=== PATIENT | male | born 1975 | race Caucasian/White ===

== ENCOUNTER 2020-07-05 10:21 | Outpatient (CLI) | payer BC, SELFPAY ==
--- NOTE | 2020-07-05 11:30 | NEURO_ITS ---
Impression: # Complains of numbness of hands. # Bilateral ulnar neuropathy across the elbows. # Mild bilateral Carpal Tunnel Syndrome. # Needle/EMG exam not requested. Nerve Conduction Studies Anti Sensory Summary Table Stim Site NR Peak (ms) P-T Amp (?V) Site1 Site2 Delta-P (ms) Dist (cm) Og (m/s) Left Median Anti Sensory (2-3nd Digit) Wrist 3.4 65.7 Wrist 2-3nd Digit 3.4 14.0 41 Wrist 3.4 63.6 Wrist 2-3nd Digit 3.4 14.0 41 Right Median Anti Sensory (2-3nd Digit) Wrist 4.0 47.5 Wrist 2-3nd Digit 4.0 14.0 35 Wrist 3.8 56.6 Wrist 2-3nd Digit 4.0 14.0 35 Left Radial Anti Sensory (Base 1st Digit) Wrist 2.0 38.4 Wrist Base 1st Digit 2.0 0.0 Right Radial Anti Sensory (Base 1st Digit) Wrist 2.4 13.8 Wrist Base 1st Digit 2.4 0.0 Left Ulnar Anti Sensory (5th Digit) Wrist 2.9 55.4 Wrist 5th Digit 2.9 14.0 48 Right Ulnar Anti Sensory (5th Digit) Wrist 2.9 74.2 Wrist 5th Digit 2.9 14.0 48 Motor Summary Table Stim Site NR Onset (ms) O-P Amp (mV) Site1 Site2 Delta-0 (ms) Dist (cm) Og (m/s) Left Median Motor (Abd Poll Brev) Wrist 3.8 4.1 Elbow Wrist 5.1 28.0 55 Elbow 8.9 3.1 Right Median Motor (Abd Poll Brev) Wrist 3.9 11.3 Elbow Wrist 5.4 28.0 52 Elbow 9.3 4.5 Left Ulnar Motor (Abd Dig Minimi) Wrist 2.9 7.8 A Elbow Wrist 6.1 28.0 46 A Elbow 9.0 5.6 B Elbow Wrist 4.1 24.0 59 B Elbow 7.0 5.3 Right Ulnar Motor (Abd Dig Minimi) Wrist 2.6 5.7 A Elbow Wrist 6.1 29.0 48 A Elbow 8.7 3.2 B Elbow Wrist 3.5 20.0 57 B Elbow 6.1 3.9 F Wave Studies NR F-Lat (ms) L-R F-Lat (ms) Left Median (Mrkrs) (Abd Poll Brev) 29.28 0.29 Right Median (Mrkrs) (Abd Poll Brev) 29.57 0.29 Left Ulnar (Mrkrs) (Abd Dig Min) 29.66 1.03 Right Ulnar (Mrkrs) (Abd Dig Min) 30.69 1.03 MTDD
== END 2020-07-05 10:22 | disposition home or self-care (01) ==
LOC: ANHNEURO 10:25
PROVIDERS: PCP Internal Medicine; Visit Provider Internal Medicine
DX: R20.2 Paresthesia of skin (principal); G56.23 Lesion of ulnar nerve, bilateral upper limbs; G56.03 Carpal tunnel syndrome, bilateral upper limbs
CPT/HCPCS: 95911

== ENCOUNTER 2021-10-11 08:41 | Outpatient (CLI) | payer BC, SELFPAY ==
--- NOTE | 2021-10-11 08:59 | ECHO_ITS ---
Patient Info Name: Joe Denis Age: 45 years : 1975 Gender: Male Ht: 68 in Wt: 179 lbs BSA: 1.99 m2 HR: 68 bpm BP: 118 / 76 mmHg Technical Quality: Good Exam Date: 10/11/2021 9:26 AM Exam Location: [facility] Patient Status: Outpatient Admit Date: 10/11/2021 Staff Ordering Physician: Quincy Capps DO Quality Auditor: Ale Trevizo RDCS Attending Provider: Quincy Capps DO Referring Physician: Jefry FLOYD; Exam Type: CA echo doppler color flow Study Info Indications R06.00 - Dyspnea, unspecified Complete two-dimensional, color flow and Doppler transthoracic echocardiogram is performed. Summary 1. Complete two-dimensional, color flow and Doppler transthoracic echocardiogram is performed. 2. Left ventricular chamber dimension is mildly enlarged. 3. Left ventricular systolic function is mildly reduced, estimated at 45-50%. 4. The left ventricular diastolic function is grade I diastolic dysfunction. 5. E/e' 7 is not elevated. 6. Global longitudinal strain is abnormal at -14.8%. 7. There is mild tricuspid valve regurgitation. 8. No pulmonary hypertension, estimated pulmonary arterial systolic pressure is 22 mmHg. 9. There is mild pulmonic regurgitation. Left Ventricle E/e' 7 is not elevated. Global longitudinal strain is abnormal at -14.8%. Left ventricular chamber dimension is mildly enlarged. Left ventricular systolic function is mildly reduced, estimated at 45-50%. The left ventricular diastolic function is grade I diastolic dysfunction. Right Ventricle Right ventricular chamber dimension is normal. Right ventricular systolic function is normal. Left Atria Left atrial chamber dimension is normal. Right Atria Right atrial chamber dimension is normal. Aortic Valve The aortic valve is trileaflet. There is no aortic valve stenosis. There is no aortic valve regurgitation. Pulmonic Valve There is mild pulmonic regurgitation. Mitral Valve There is no mitral valve stenosis. There is no mitral valve regurgitation. Tricuspid Valve There is mild tricuspid valve regurgitation. No pulmonary hypertension, estimated pulmonary arterial systolic pressure is 22 mmHg. Pericardium/Pleural There is no pericardial effusion. Inferior Vena Cava Normal inferior vena cava with >50% collapse upon inspiration consistent with normal right atrial pressure, 5 mmHg. Aorta The aortic root size at the sinus of Valsalva is normal. Left Ventricular Outflow Tract Name Value Normal LVOT 2D LVOT Diameter 2.1 cm LVOT Doppler LVOT Peak Gradient 3 mmHg LVOT Mean Gradient 1 mmHg LVOT VTI 15 cm LVOT VTI/AV VTI Ratio 0.9 LVOT Stroke Volume 55 ml LVOT CO 12.1 l/min LVOT CI 6.1 l/min/m2 Pulmonic Valve Name Value Normal
--- NOTE | 2021-10-11 08:59 | EST_ITS ---
Patient Info Name: Joe Denis Age: 45 years : 1975 Gender: Male Ht: 68 in Wt: 1,789 lbs BSA: 6.86 m2 HR: 87 bpm BP: 128 / 92 mmHg Heart Rhythm: Sinus Rhythm Technical Quality: Good Exam Date: 10/11/2021 10:51 AM Exam Location: [facility] Patient Status: Outpatient Admit Date: 10/11/2021 Staff Ordering Physician: Quincy Capps DO Appliance Installer: Nanci Keyes RDCS Attending Provider: Quincy Capps DO Referring Physician: Jefry FLOYD; Exam Type: CA stress echo Study Info Indications - MARTINEZ, NORIS Dobutamine stress echocardiogram is performed. Summary 1. 1. Negative Dhaval exercise stress test for ischemic ST changes by ECG criteria. 2. 2. Good functional capacity, achieving 11 METs of workload. 3. 3. Hypertensive response to exercise. 4. 4. Appropriate HR response to exercise. 5. 5. Appropriate HR recovery at 1 minute post exercise. 6. 6. Negative stress echocardiogram for ischemia by wall motion analysis. 7. 7. Patient informed of the above results. Stress Echo Findings Left Ventricle Appropriate increase in LV endocardial thickening with systole. Appropriate augmentation of contractility with systole. No wall motion abnormality. Left Ventricle Normal LV systolic function, no wall motion abnormality. Protocol: Dhaval Stress ECG Details Stage: REST Duration (min): 0 min : 48 sec Speed (mph): 0.0 Grade (%): 0 HR (bpm): 83 SBP (mmHg): 128 DBP (mmHg): 92 METS: --- Stage: REST Duration (min): 1 min : 20 sec Speed (mph): 0.0 Grade (%): 0 HR (bpm): 77 SBP (mmHg): 128 DBP (mmHg): 92 METS: --- Stage: REST Duration (min): 15 min : 50 sec Speed (mph): 0.0 Grade (%): 0 HR (bpm): 85 SBP (mmHg): 128 DBP (mmHg): 92 METS: --- Stage: STAGE 1 Duration (min): 1 min : 0 sec Speed (mph): 1.7 Grade (%): 10 HR (bpm): 104 SBP (mmHg): 128 DBP (mmHg): 92 METS: --- Stage: STAGE 1 Duration (min): 2 min : 0 sec Speed (mph): 1.7 Grade (%): 10 HR (bpm): 114 SBP (mmHg): 128 DBP (mmHg): 92 METS: --- Stage: STAGE 1 Duration (min): 3 min : 0 sec Speed (mph): 1.7 Grade (%): 10 HR (bpm): 116 SBP (mmHg): 161 DBP (mmHg): 77 METS: --- Stage: STAGE 2 Duration (min): 1 min : 0 sec Speed (mph): 2.5 Grade (%): 12 HR (bpm): 126 SBP (mmHg): 161 DBP (mmHg): 77 METS: --- Stage: STAGE 2 Duration (min): 2 min : 0 sec Speed (mph): 2.5 Grade (%): 12 HR (bpm): 136 SBP (mmHg): 157 DBP (mmHg): 82 METS: --- Stage: STAGE 2 Duration (min): 3 min : 0 sec Speed (mph): 2.5 Grade (%): 12 HR (bpm): 142 SBP (mmHg): 157 DBP (mmHg): 82 METS: --- Stage: STAGE 3 Duration (min): 1 min : 0 sec Speed (mph): 3.4 Grade (%): 14 HR (bpm): 153 SBP (mmHg): 186 DBP (mmHg): 76 METS: --- Stage: STAGE 3 Duration (min): 2 min : 0 sec Speed (mp
== END 2021-10-11 08:42 | disposition home or self-care (01) ==
PROVIDERS: PCP Internal Medicine; Visit Provider Internal Medicine Cardiovascular Disease
DX: R06.00 Dyspnea, unspecified (principal); R07.9 Chest pain, unspecified
CPT/HCPCS: 93306; 93351

== ENCOUNTER 2022-12-12 15:45 | Outpatient (RCR) | payer BC, SELFPAY ==
--- NOTE | 2022-11-14 10:25 | PTOPEVAL1 ---
Assessment and note entered by Deloris Rowell, PT Evaluation Information Assessment Status Evaluation Diagnosis right hip pain Onset end of August 2022 Subjective Information Pt had significant issues with Covid and vaccines. Current issue with right hip was having depe joint pain. Also has plantar fasciitis and had recently changed shoe inserts and thought this was throwing off hip. 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 Has been rolling and stretching hips. After getting used to inserts, has not had immediate improvement Has had some improvement in last two weeks. But last night did wake up at night. Reported Pain Level Pain Score 1: Self Report Assessment PT Clinical Summary Pt presents with right hip pain that has persisted about 2.5 months. While it has improved, pt persists and continues to wake him at night. Pt demo' multiple areas of decreased LE flexibility, adhesions, abnormal pelvic alignment, and decresaed strength in mulitple core muscles all of which effect his ability to perform his normal ADLs and recreational activities. Thus patient will benefit from physical therapy to address these deficits and return pt to pain-free PLOF. Plan of Care Interventions Electrical Stimulation,Hot Pack/Cold Pack,Manual Therapy,Neuro Re-education,Patient/Caregiver Educati,Therapeutic Activities,Therapeutic Exercise,Ultrasound PT Services Indicated Yes Treatment Frequency and 1-2x weekly x 4 weeks Duration These treatments will address the objective and functional deficits as defined above. The patient will be advanced safely and appropriately in order for the patient to progress towards his/her prior level of function. Additional exercises will be introduced and as well as a comprehensive home exercise program upon discharge, if needed, ?to ensure carryover of functional gains achieved in the clinic. This treatment plan has been reviewed and agreement upon by the patient.
--- NOTE | 2022-11-14 10:26 | OPREHPOC ---
Outpatient Therapy Plan of Care This is a Multidisciplinary Plan of Care that may contain components documented by all disciplines (PT, OT, and ST.) PT Goal 1 Goal Pt will be independent in HEP Target Visit 8 PT Goal 2 Goal Pt will verbalize understanding of diagnosis and prognosis Target Visit 8 PT Problem 2 PT Problem #2 Pain PT Goal 1 Goal Pt will report greatest pain level at 2/10 or less Target Visit 4 PT Goal 2 Goal Pt will report resolution of pain Target Visit 8 PT Problem 3 PT Problem #3 Impaired Strength PT Goal 1 Goal Pt will demo strength of 4+/5 in all tested planes PT Problem 4 PT Problem #4 Impaired Flexibility PT Goal 1 Goal pt will demo improved quads and hams flexibility Target Visit 8
--- NOTE | 2022-12-13 16:24 | PTOPDC ---
Assessment and note entered by Deloris Rowell, PT Assessment Status Discharge Diagnosis right hip pain Onset end of August 2022 Subjective Information Pt reports his hips have been great . However has had plantar fasciitis issues with recent walking Also played tennis recently and pulled his back, resulting in severly increased pain. Has been seeing chiropractor consistently for multiple days to address this. Reported Pain Level Pain Score 0: Self Report Assessment PT Clinical Summary Pt has attended therapy consistently for hip pain R hip. Pt reports his hip is much better, even states within the last week has had 0/10 hip pain. Demo's improved soft tissue extensibility, improved flexibility overall, is independent in HEP. However pt has recently had a back injury thus strength was unable to be tested due to back pain. As patient has met his goals for his hip, he is being discharged from this plan of care.
== END 2022-12-16 10:27 | disposition home or self-care (01) ==
LOC: ANHHIPT 15:45
PROVIDERS: PCP Physician Assistant Medical; Visit Provider Nurse Practitioner Family
DX: M25.551 Pain in right hip (principal)
CPT/HCPCS: 97110; 97140; 97161; 97750

== ENCOUNTER 2023-01-23 00:57 | Day surgery (SDC) | payer BC, SELFPAY ==
[2023-01-14 13:01] VITALS: BMI 27.3
[2023-01-23 13:35] VITALS: BP 121/91; PULSE 101; RESP 20; TEMP 36.4; O2SAT 100; BMI 26.9
[2023-01-23] MEDS: LACTATED RINGERS 1,000 ML 150 ML IV CONT (13:58)
--- NOTE | 2023-01-23 14:03 | P.PNAN_ITS ---
Anes - Initial Pre Proc Eval Procedure: Operation Date: 01/23/23 14:15 Proposed Procedures p Screening Colonoscopy - Keegan Redding MD Date/Time: 01/23/23 14:03 Surgeon: Keegan Redding MD Pre Op Diagnosis: neoplasm screening Patient Data Age: 47 Gender: M Height: 1.73 m Weight: 80.2 kg Last Vital Signs Temp 97.5 F L 01/23/23 13:35 Pulse 101 H 01/23/23 13:35 Resp 20 01/23/23 13:35 BP 121/91 H 01/23/23 13:35 Pulse Ox 100 01/23/23 13:35 O2 Del Method Room Air 01/23/23 13:35 Allergies Allergy/AdvReac Type Severity Reaction Status Date / Time No Known Allergies Allergy Verified 01/22/23 09:07 Home Medications Medication Instructions Recorded Confirmed Type fluticasone propionate 50 1 spray intranasal DAILY #16 grams 01/13/22 01/22/23 Rx mcg/actuation nasal spray,suspension multivitamin 1 tablet PO DAILY 11/26/22 01/22/23 History testosterone cypionate 200 mg/mL 150 mg (0.75 mL) IM .COMPLEX #3 mL 12/12/22 01/22/23 Rx intramuscular oil (Depo-Testosterone) Patient hx anesthesia problems: none Family hx anesthesia problems: none Results Review: All pre-operative results and documents have been reviewed as part of the pre- operative evaluation. [facility] Past Medical History Medical History Hypogonadism in male Surgical History Surgical History History of nasal surgery History of tonsillectomy Social History Social History Smoking status: Never smoker Alcohol intake: current Drinks per week: 7 Substance use: never Substance use type: does not use Living arrangements: with family Occupation/Education: occupation Gender identity (if verbalized by the patient): Male Spiritual care concerns: No Anes - Eval Final PreProcedure Day of Procedure 01/23/23 14:03 Patient weight: overweight Heart: regular rate and rhythm Lungs: clear to auscultation Airway: Mallampati scale class II Neurological: alert and oriented Last oral intake: >/= 8 hours ASA classification: II Emergent: no Anesthetic plan: proceed Anesthesia type and monitoring: general GIVS and standard monitoring Results Review: All pre-operative results and documents have been reviewed as part of the pre- operative evaluation. Informed Consent: The patient's anesthetic plan and its attendant risks and benefits were discussed with the patient/family/POA. Questions were solicited and answers provided to the satisfaction of the patient/family/POA.
--- NOTE | 2023-01-23 14:05 | PM.HPGS ---
History of Present Illness History of Present Illness Consent: Risks, benefits, and alternatives have been discussed and questions answered. Patient agrees to proceed with procedure. Chief complaint: neoplasm screening Narrative: Joe Denis is a 47 year old male Presents for screening colonoscopy. Patient's current weight appetite and bowel movements are normal. Patient denies abdominal pain. He has had no bleeding. Family history is noncontributory. Review of Systems Review of Systems: Review of systems noncontributory. [facility] Past Medical History Medical History Hypogonadism in male Surgical History Surgical History History of nasal surgery History of tonsillectomy Social History Social History Smoking status: Never smoker Alcohol intake: current Drinks per week: 7 Substance use: never Substance use type: does not use Living arrangements: with family Occupation/Education: occupation Gender identity (if verbalized by the patient): Male Spiritual care concerns: No Meds Home Medications and Allergies Home Medications Medication Instructions Recorded Confirmed Type fluticasone propionate 50 1 spray intranasal DAILY #16 grams 01/13/22 01/22/23 Rx mcg/actuation nasal spray,suspension multivitamin 1 tablet PO DAILY 11/26/22 01/22/23 History testosterone cypionate 200 mg/mL 150 mg (0.75 mL) IM .COMPLEX #3 mL 12/12/22 01/22/23 Rx intramuscular oil (Depo-Testosterone) Allergies Allergy/AdvReac Type Severity Reaction Status Date / Time No Known Allergies Allergy Verified 01/22/23 09:07 Vital Signs Vital Signs - 24 hr 01/23/23 13:35 Temperature 97.5 F L Pulse Rate 101 H Respiratory Rate 20 Blood Pressure 121/91 H Pulse Oximetry 100 Oxygen Delivery Room Air Exam Narrative: Physical exam reveals patient to be alert. Vital signs stable. HEENT exam is unremarkable. Patient is anicteric. Lungs are clear to auscultation and percussion. Heart is without murmur or extra sounds. Abdomen bowel sounds are present soft nontender with no organomegaly. Digital external rectal exam normal. Assessment and Plan Assessment and plan (1) Encounter for screening colonoscopy: Code(s): Z12.11 - Encounter for screening for malignant neoplasm of colon Status: Acute Assessment and Plan: Patient presents for screening colonoscopy. Plan for surveillance colonoscopy at this time. Further recommendations may be given after endoscopy.
[2023-01-23] MEDS: SIMETHICONE ORAL SUSPENSION 20 MG/0.3 ML 30 ML BOTTLE 0.6 ML IRRIGATION (14:22)
[2023-01-23 14:31] VITALS: BP 117/79; PULSE 94; RESP 20; O2SAT 97
[2023-01-23 14:41] VITALS: BP 111/68; PULSE 93; RESP 19; O2SAT 98
[2023-01-23 14:51] VITALS: BP 117/84; PULSE 91; RESP 20; O2SAT 98
== END 2023-01-23 15:02 | disposition home or self-care (01) ==
PROVIDERS: PCP Physician Assistant Medical; Visit Provider Internal Medicine Gastroenterology
PROC: 0DJD8ZZ Inspection of Lower Intestinal Tract, Via Natural or Artificial Opening Endoscopic (ICD-10-PCS; CPT 45378; principal; 2023-01-23 14:15)
DX: Z12.11 Encounter for screening for malignant neoplasm of colon (principal); K64.8 Other hemorrhoids; E29.1 Testicular hypofunction; Z79.890 Hormone replacement therapy
CPT/HCPCS: 45378; J2704; J7120

== ENCOUNTER 2023-05-04 14:21 | Outpatient (CLI) | payer BC, SELFPAY ==
[2023-05-04 14:40] LABS: Basophils Percent Auto 0.5 % (0.2-1.2); Eosinophils Absolute Auto 0.1 K/mm3 (0-0.3); Eosinophils Percent Auto 2.1 % (0-4.4); Hemoglobin 16.7 g/dL (14.0-18.0); Immature Granulocyte Absolute 0.03 K/mm3 (0.00-0.031); Immature Granulocyte Percent A 0.5 % (0-0.5); Lymphocytes Absolute Auto 1.58 K/mm3 (0.9-3.2); Lymphocytes Percent Auto 25.1 % (18.3-44.2); Mean Corpuscular HGB Conc 34.8 g/dl (32-36); Mean Corpuscular Hemoglobin 32.3 pg (26-34); Mean Corpuscular Volume 92.8 fl (80-100); Mean Platelet Volume 10.1 fl (7.4-10.4); Monocytes Absolute Auto 0.7 K/mm3 (0.1-0.6); Neutrophils Absolute Auto 3.8 K/mm3 (1.3-6.7); Neutrophils Percent Auto 60.8 % (45.5-73.1); Platelet Count Result 146 k/mm3 (150-375); Red Blood Count 5.17 M/mm3 (4.6-6.20); Red Cell Distribution Width 11.9 % (11.5-14.5); White Blood Count 6.3 K/mm3 (4.5-10.0)
[2023-05-04 16:48] LABS: Iron 104 ug/dL (49-181)
[2023-05-04 16:52] LABS: Alanine Aminotransferase 33 U/L (6-50); Albumin Level 4.2 g/dL (3.5-5.1); Alkaline Phosphatase 46 U/L (38-126); Anion Gap 9 mmol/L (8-16); Aspartate Amino Transferase 29 U/L (17-59); Bilirubin,Total 0.8 mg/dL (0.2-1.3); Blood Urea Nitrogen 20 mg/dL (9-20); Calcium 9.4 mg/dL (8.4-10.2); Carbon Dioxide 29 mmol/L (22-30); Chloride 100 mmol/L (98-107); Estimated Glomerular Filt Rate > 60; Glucose 100 mg/dL (65-110); Sodium 138 mmol/L (137-145)
[2023-05-04 17:00] LABS: Percent Iron Saturation 29 % (20-50)
[2023-05-04 17:57] LABS: Folic Acid 15.1 ng/mL (2.76->20)
[2023-05-07 07:51] LABS: Methylmalonic Acid 138 nmol/L (87-318)
[2023-05-09 12:36] LABS: Platelet Antibody, Direct NEGATIVE (NEGATIVE)
[2023-05-09 15:47] LABS: Soluble Transferrin Receptor 1.23 mg/L (0.76-1.76)
== END 2023-05-04 14:22 | disposition home or self-care (01) ==
LOC: ANHLAB 14:23
PROVIDERS: PCP Physician Assistant Medical; Visit Provider Internal Medicine Hematology & Oncology
DX: D64.9 Anemia, unspecified (principal); D69.59 Other secondary thrombocytopenia
CPT/HCPCS: 36415; 80053; 82607; 82728; 82746; 83540; 83550; 83921; 84238; 85025; 86023

== ENCOUNTER 2023-05-14 07:54 | Outpatient (CLI) | payer BC, SELFPAY ==
--- NOTE | ~2023-05-14 | US_ITS ---
Abdominal Sonogram: Real-time sonographic imaging of the abdomen was performed. Clinical History: Secondary anna therapy Findings: The liver appears normal with no evidence of mass lesion or bile duct dilatation. Main por artemio vein demonstrates normal direction of flow. The spleen is normal in size without evidence of foca l lesion. The gallbladder is well distended, and contains a probable single tiny gallstone. The comm on bile duct measures 2 mm. The visualized pancreas, aorta, and IVC are unremarkable. The right kid ronni measures 10.4 cm in length and the left kidney measures 10.7 cm. There is no hydronephrosis or r enal calculus. Impression: Probable tiny gallstone or sludge. Reviewed, dictated and finalized at location [facility]. [facility] Impression: Probable tiny gallstone or sludge.
== END 2023-05-14 07:55 | disposition home or self-care (01) ==
PROVIDERS: PCP Physician Assistant Medical; Visit Provider Internal Medicine Hematology & Oncology
DX: D69.59 Other secondary thrombocytopenia (principal)
CPT/HCPCS: 76700

== ENCOUNTER 2023-09-15 08:39 | Outpatient (CLI) | payer BC, SELFPAY ==
--- NOTE | 2023-09-15 08:46 | ECHO_ITS ---
Patient Info Name: Joe Denis Age: 47 years : 1975 Gender: Male Ht: 68 in Wt: 177 lbs BSA: 1.98 m2 HR: 70 bpm BP: 135 / 94 mmHg Technical Quality: Fair Exam Date: 09/15/2023 8:52 AM Exam Location: [facility] Patient Status: Outpatient Admit Date: 09/15/2023 Staff Ordering Physician: Quincy Capps DO Fiberglass Model Maker: Sonja Villegas RDCS Attending Provider: Quincy Capps DO Referring Physician: Jefry FLOYD; Exam Type: CA echo doppler color flow Study Info Indications I51.9 - Heart disease, unspecified Complete two-dimensional, color flow and Doppler transthoracic echocardiogram is performed. Summary 1. Complete two-dimensional, color flow and Doppler transthoracic echocardiogram is performed. 2. Left ventricular chamber dimension is normal. 3. Left ventricular systolic function is preserved, estimated at 50-55%. 4. The left ventricular diastolic function is grade I diastolic dysfunction. 5. E/e' 5 is not elevated. 6. There is trace mitral valve regurgitation. 7. There is mild tricuspid valve regurgitation. 8. There is mild pulmonic regurgitation. Left Ventricle E/e' 5 is not elevated. Left ventricular chamber dimension is normal. Left ventricular systolic function is preserved, estimated at 50-55%. The left ventricular diastolic function is grade I diastolic dysfunction. Right Ventricle Right ventricular chamber dimension is normal. Right ventricular systolic function is normal. Left Atria Left atrial chamber dimension is normal. Right Atria Right atrial chamber dimension is normal. Aortic Valve The aortic valve is trileaflet. There is no aortic valve stenosis. There is no aortic valve regurgitation. Pulmonic Valve There is mild pulmonic regurgitation. Mitral Valve There is no mitral valve stenosis. There is trace mitral valve regurgitation. Tricuspid Valve There is mild tricuspid valve regurgitation. No pulmonary hypertension, estimated pulmonary arterial systolic pressure is 18 mmHg. Pericardium/Pleural There is no pericardial effusion. Inferior Vena Cava Normal inferior vena cava with >50% collapse upon inspiration consistent with normal right atrial pressure, 5 mmHg. Aorta The aortic root size at the sinus of Valsalva is normal. Left Ventricular Outflow Tract Name Value Normal LVOT 2D LVOT Diameter 2.1 cm LVOT Doppler LVOT Peak Gradient 3 mmHg LVOT Mean Gradient 1 mmHg LVOT VTI 14 cm LVOT VTI/AV VTI Ratio 0.8 LVOT Stroke Volume 47 ml LVOT CO 3.0 l/min LVOT CI 1.5 l/min/m2 Pulmonic Valve Name Value Normal RVOT Doppler RVOT Peak Gradient 1 mmHg PV Doppler PV Peak Gradient 2 mm
== END 2023-09-15 08:40 | disposition home or self-care (01) ==
PROVIDERS: PCP Physician Assistant Medical; Visit Provider Internal Medicine Cardiovascular Disease
DX: I08.3 Combined rheumatic disorders of mitral, aortic and tricuspid valves (principal)
CPT/HCPCS: 93306

== ENCOUNTER 2023-11-25 11:39 | Outpatient (CLI) | payer BC, SELFPAY ==
[2023-11-25 11:54] LABS: Basophils Percent Auto 0.5 % (0.2-1.2); Eosinophils Absolute Auto 0.1 K/mm3 (0-0.3); Eosinophils Percent Auto 1.9 % (0-4.4); Hematocrit 52.1 % (42.0-52.0); Hemoglobin 17.9 g/dL (14.0-18.0); Immature Granulocyte Absolute 0.04 K/mm3 (0.00-0.031); Immature Granulocyte Percent A 0.6 % (0-0.5); Immature Platelet Fraction Pct 5.1 % (0.9-11.2); Lymphocytes Absolute Auto 1.89 K/mm3 (0.9-3.2); Lymphocytes Percent Auto 29.2 % (18.3-44.2); Mean Corpuscular HGB Conc 34.4 g/dl (32-36); Mean Corpuscular Hemoglobin 32.7 pg (26-34); Mean Corpuscular Volume 95.1 fl (80-100); Mean Platelet Volume 10.4 fl (7.4-10.4); Monocytes Absolute Auto 0.7 K/mm3 (0.1-0.6); Monocytes Percent Auto 10.3 % (2.6-8.5); Neutrophils Absolute Auto 3.7 K/mm3 (1.3-6.7); Neutrophils Percent Auto 57.5 % (45.5-73.1); Platelet Count Result 134 k/mm3 (150-375); Red Blood Count 5.48 M/mm3 (4.6-6.20); Red Cell Distribution Width 12.5 % (11.5-14.5); White Blood Count 6.5 K/mm3 (4.5-10.0)
[2023-11-25 16:03] LABS: Folic Acid > 20.0 ng/mL (2.76->20)
[2023-11-28 17:39] LABS: Testosterone Total 894 ng/dL (250-1100)
== END 2023-11-25 11:40 | disposition home or self-care (01) ==
LOC: ANHLAB 11:40
PROVIDERS: PCP Physician Assistant Medical; Visit Provider Internal Medicine Hematology & Oncology
DX: D64.9 Anemia, unspecified (principal); E29.1 Testicular hypofunction
CPT/HCPCS: 36415; 82607; 82746; 84403; 85025; 85055

== ENCOUNTER 2024-06-02 09:54 | Outpatient (CLI) | payer BC, SELFPAY ==
[2024-06-02 10:12] LABS: Basophils Percent Auto 0.3 % (0.2-1.2); Eosinophils Absolute Auto 0.1 K/mm3 (0-0.3); Eosinophils Percent Auto 1.8 % (0-4.4); Hematocrit 49.7 % (42.0-52.0); Hemoglobin 17.4 g/dL (14.0-18.0); Immature Granulocyte Absolute 0.04 K/mm3 (0.00-0.031); Immature Granulocyte Percent A 0.6 % (0-0.5); Lymphocytes Absolute Auto 1.59 K/mm3 (0.9-3.2); Lymphocytes Percent Auto 24.1 % (18.3-44.2); Mean Corpuscular Hemoglobin 31.9 pg (26-34); Mean Corpuscular Volume 91.2 fl (80-100); Mean Platelet Volume 10.2 fl (7.4-10.4); Monocytes Absolute Auto 0.7 K/mm3 (0.1-0.6); Monocytes Percent Auto 10.5 % (2.6-8.5); Neutrophils Absolute Auto 4.1 K/mm3 (1.3-6.7); Neutrophils Percent Auto 62.7 % (45.5-73.1); Platelet Count Result 145 k/mm3 (150-375); Red Blood Count 5.45 M/mm3 (4.6-6.20); Red Cell Distribution Width 12.3 % (11.5-14.5); White Blood Count 6.6 K/mm3 (4.5-10.0)
[2024-06-02 10:48] LABS: Iron 92 ug/dL (49-181)
[2024-06-02 10:51] LABS: Alanine Aminotransferase 49 U/L (6-50); Albumin Level 4.4 g/dL (3.5-5.1); Alkaline Phosphatase 48 U/L (38-126); Anion Gap 6 mmol/L (4-12); Aspartate Amino Transferase 32 U/L (17-59); Bilirubin,Total 0.8 mg/dL (0.2-1.3); Blood Urea Nitrogen 22 mg/dL (9-20); Calcium 9.4 mg/dL (8.4-10.2); Carbon Dioxide 31 mmol/L (22-30); Chloride 101 mmol/L (98-107); Estimated Glomerular Filt Rate > 60; Glucose 96 mg/dL (65-110); Potassium 4.5 mmol/L (3.4-5.0); Sodium 138 mmol/L (137-145)
[2024-06-02 16:05] LABS: Percent Iron Saturation 25 % (20-50)
[2024-06-03 00:18] LABS: Folic Acid 13.7 ng/mL (2.76->20)
== END 2024-06-02 09:55 | disposition home or self-care (01) ==
LOC: ANHLAB 09:58
PROVIDERS: PCP Physician Assistant Medical; Visit Provider Internal Medicine Hematology & Oncology
DX: D64.9 Anemia, unspecified (principal)
CPT/HCPCS: 36415; 80053; 82607; 82728; 82746; 83540; 83550; 85025

== ENCOUNTER 2024-11-08 07:49 | Outpatient (CLI) | payer BC, SELFPAY ==
--- OUTSIDE RECORDS SUMMARY | 2024-11-08 07:54 | XMS_ITS | Clinical Summary ---
Author Organization [facility] Vern Kerr Address [address] [place] [address] [place] [address] Care Team Providers Care Research Program Internship Name Role Phone Unavailable Primary Care Provider Unavailabl e Allergies No known active allergies Medications testosterone cypionate 200 mg/mL Kit 01/03/2021 Active BENEFIBER, GUAR GUM, ORAL Take by mouth. Active ibuprofen (MOTRIN) 200 mg tablet Take 200 mg by mouth every 6 hours as needed for Pain, Mild. Active Active Problems No known active problems Encounters Date Type Department Care Team Description 09/06/2024 External Device Data [facility]CTION Provider, Abstract 08/24/2024 External Device Data [facility] Provider, Abstract 08/23/2024 External Device Data [facility] Provider, Abstract from Last 3 Months Family History Medical History Relation Name Comments Lung Cancer Father Relation Name Status Comments Brother Alive Daughter Alive Father Mother Alive Sister Alive Son Alive Social History Tobacco Use Types Packs/Day Years Used Date Smoking Tobacco: Never Smokeless Tobacco: Never Tobacco Cessation:Counseling Given: Not Answered Alcohol Use Standard Drinks/Week Comments Yes 0 (1 standard drink = 0.6 oz pur e alcohol) ocassional Sex and Gender Information Value Date Recorded Sex Assigned at Not on file Legal Sex Male 5:36 PM WAITER/WAITRESS BAR Gender Identity Not on file Sexual Orientation Not on file Last Filed Vital Signs Vital Sign Reading Time Taken Comments Blood Pressure 141/97 06/03/2024 9:59 AM WAITER/WAITRESS BAR Pulse 74 06/03/2024 9:56 AM WAITER/WAITRESS BAR Temperature 36.3 C (97.3 F) 06/03/2024 9:56 AM WAITER/WAITRESS BAR Respiratory Rate 16 06/03/2024 9:56 AM WAITER/WAITRESS BAR Oxygen Saturation 97% 06/03/2024 9:56 AM WAITER/WAITRESS BAR Inhaled Oxygen Concentration - - Weight 83.3 kg (183 lb 9.6 oz) 06/03/2024 9:56 A M WAITER/WAITRESS BAR Height 172.7 cm (5' 8) 05/04/2023 1:27 PM WAITER/WAITRESS BAR Body Mass Index 27.92 05/04/2023 1:27 PM WAITER/WAITRESS BAR Plan of Treatment Upcoming Encounters Date Type Department Care Team (Late st Contact Info) Description 03/07/2025 10:00 AM WAITER/WAITRESS BAR Office Visit [facility] Oncology and Hematology - [place] [address] [facility] [address] [place] [address] Sheldon De León MD [address] [facility] [address] [place] [address] Health Maintenance Due Date Last Done Comments Pre-Diabetes and Diabetes Screening 1975 DTAP/TDAP/TD VACCINES (1 - Tdap) 1996 HEPATITIS B VACCINES (1 of 3 - 19+ 3-dose series) 10/04 COLORECTAL SCREENING 2022 Colorectal Cancer Screening 2022 FIT-DNA Q 3 years 2022 FIT/FOBT Q 1 year 2022 Flex Sig/CT Colonography Q 5 years 2022 INFLUENZA VACCINE (#1) 2024 Insurance [facility] BLUE ACCESS CHOICE
--- OUTSIDE RECORDS SUMMARY | 2024-11-08 07:54 | XMS_ITS | Clinical Summary ---
Author Organization [facility] Address [address] [place] [address] Care Team Providers Care Pipe Assembly Worker Name Role Phone Kenneth Figueredo MD Primary Care Provider [phone] Allergies No known active allergies Medications fluticasone propionate 50 MCG/ACT nasal spray INSTILL 1 SPRAY IN EACH NOSTRIL DAILY 04/09/2020 Active Active Problems Problem Noted Date Diagnosed Date Trigger middle finger of right hand 08/29/2020 Cubital tunnel syndrome on right 08/29/2020 Family History Medical History Relation Comments Cancer Father Cancer Maternal Grandfather Cancer Paternal Grandfather Cancer Paternal Grandmother Relation Status Comments Father Maternal Grandfather Paternal Grandfather Paternal Grandmother Social History Tobacco Use Types Packs/Day Years Used Date Smoking Tobacco: Never Smokeless Tobacco: Never Tobacco Cessation:Counseling Given: No PHQ-2 Answer Date Recorded PHQ-2 Score - If the patient scores above 3, please move on to questions 3-9 0 08/29/2020 Sex and Gender Information Value Date Recorded Sex Assigned at Not on file Legal Sex Male 7:12 PM CDT Gender Identity Not on file Sexual Orientation Not on file Last Filed Vital Signs Vital Sign Reading Time Taken Comments Blood Pressure 108/70 09/06/2020 10:28 AM CDT Pulse 72 09/06/2020 10:28 AM CDT Temperature - - Respiratory Rate - - Oxygen Saturation 97% 08/29/2020 8:23 AM CDT Inhaled Oxygen Concentration - - Weight 83.1 kg (183 lb 4.8 oz) 09/06/2020 10:28 AM CDT Height 172.7 cm (5' 8) 09/06/2020 10:28 AM CDT Body Mass Index 27.87 09/06/2020 10:28 AM CDT Plan of Treatment Health Maintenance Due Date Last Done Comments Colorectal Cancer Screening Colonoscopy (10 Years) 1977 Annual Physical 1980 Hepatitis C 10/23/1995 DTaP, Tdap and Td Vaccines ( 1 - Tdap) 1996 Hepatitis B Vaccines (1 of 3 - 19+ 3-dose series) 1996 COVID-19 Vaccine (3 - 2023-2 5 season) 2023 07/15/2020, 06/24/2020 Meningococcal B Vaccine Aged Out No l onger eligible based on patient's age to complete this topic Meningococcal Vaccine Aged Out No jacque juli eligible based on patient's age to complete this topic Pneumococcal Vaccine: Pediatrics (0 to 5 Years) and At-Risk Patients (6 to 49 Years) Aged Out No longer eligible b ased on patient's age to complete this topic RSV Immunizations Under 20 Months Aged Out No longer eligible b ased on patient's age to complete this topic Insurance Care Teams Pipe Assembly Worker Relationship Specialty Start Date End Date Kenneth Figueredo MD [address] [place] [id number] PCP - General INTERNAL MEDICINE 08/29/20
--- NOTE | 2024-11-08 08:05 | ECHO_ITS ---
Patient Info Name: Joe Denis Age: 49 years : 1975 Gender: Male Ht: 68 in Wt: 179 lbs BSA: 1.99 m2 HR: 70 bpm BP: 137 / 93 mmHg Technical Quality: Good Exam Date: 11/08/2024 8:16 AM Patient Status: O Admit Date: 11/08/2024 Exam Type: CA echo doppler color flow Complete two-dimensional, color flow and Doppler transthoracic echocardiogram is performed. Manager Gift: Ramonita Vargas Attending Provider: Quincy Capps DO Summary 1. Complete two-dimensional, color flow and Doppler transthoracic echocardiogram is performed. 2. Left ventricular chamber dimension is mildly enlarged. 3. Left ventricular systolic function is mildly reduced, estimated at 45-50. 4. There is mild concentric increased left ventricular wall thickness. 5. The left ventricular diastolic function is grade I diastolic dysfunction. 6. E/e' 5 is not elevated. 7. Left atrial chamber dimension is mildly enlarged. 8. There is trace mitral valve regurgitation. 9. There is trace tricuspid valve regurgitation. 10. There is mild pulmonic regurgitation. Left Ventricle E/e' 5 is not elevated. Left ventricular chamber dimension is mildly enlarged. Left ventricular systolic function is mildly reduced, estimated at 45-50. There is mild concentric increased left ventricular wall thickness. The left ventricular diastolic function is grade I diastolic dysfunction. Right Ventricle Right ventricular chamber dimension is normal. Right ventricular systolic function is normal and with normal TAPSE 1.8 cm. Left Atria Left atrial chamber dimension is mildly enlarged. Right Atria Right atrial chamber dimension is normal. Aortic Valve The aortic valve is trileaflet. There is no aortic valve stenosis. There is no aortic valve regurgitation. Pulmonic Valve There is mild pulmonic regurgitation. Mitral Valve There is no mitral valve stenosis. There is trace mitral valve regurgitation. Tricuspid Valve There is trace tricuspid valve regurgitation. RVSP is not measured due to an inadequate TR jet. Pericardium/Pleural There is no pericardial effusion. Inferior Vena Cava Normal inferior vena cava with >50% collapse upon inspiration consistent with normal right atrial pressure, 5 mmHg. Aorta The aortic root size at the sinus of Valsalva is normal. Left Ventricular Outflow Tract Name Value Normal LVOT 2D LVOT Diameter 2.0 cm LVOT Doppler LVOT Peak Velocity 84 cm/s LVOT Peak Gradient 3 mmHg LVOT Mean Gradient 1 mmHg LVOT VTI 18 cm LVOT Stroke Volume 57 ml LVOT CO 4.0 l/min LVOT CI 2.0 l/min/m2 Pulmonic Valve Name Value Normal RVOT Doppler RVOT Peak Velocity 64 cm/s RVOT Peak Gradient 2 mmHg PV Doppler PV Peak Velocity 87 cm/s PV Peak Gradient 3 mmHg Mitral Valve Name Value Normal MV Diastolic Function MV E Peak Velocity 45 cm/s MV A Peak Velocity 51 cm/s MV E/A 0.9 MV Decel Time (PW) 242 ms MV Annular TDI MV E/e' (Septal) 6.3 MV E/e' (Lateral) 4.2 MV E/e' (Average) 5.3 Tricuspid Valve Name Value Normal Estimated PAP/RSVP RA Pressure 5 mmHg <=5 TV Annular TDI TV Lateral Melyssa s' Velocity 11.0 cm/s >=9.5 Aortic Valve Name Value Normal AV Doppler AV Peak Velocity 102 cm/s AV Peak Gradient 4 mmHg AV Area (Cont Eq Og) 2.7 cm2 AV DI (Og) 0.83 AV Regurgitation 2D LVOT Area 3.2 cm2 Ventricles Name Value Normal LV Dimensions 2D/MM IVS Diastolic Thickness (2D) 1.2 cm 0.6-1.0 LVID Diastole (2D) 5.0 cm 4.2-5.8 LVIW Diastolic Thickness (2D) 1.0 cm 0.6-1.0 LVID Systole (2D) 3.2 cm 2.5-4.0 LVOT Diameter 2.0 cm LV Mass (2D Cubed) 201.22 g 88.00-224.00 LV Mass Index (2D Cubed) 101 g/m2 49-115 Relative Wall Thickness (2D) 0.39 <=0.42 LV Fractional Shortening/Ejection Fraction 2D/MM LV Fractional Shortening (2D) 36 % 25-43 LV EF (2D Teichholz) 65 % LV Diastolic Volume (4C MOD) 132 ml LV EF (4C MOD) 57 % LV Diastolic Volume (2C MOD) 112 ml LV EF (2C MOD) 54 % LV Diastolic Volume (BP MOD) 125 ml 62-150 LV Diastolic Volume Index (BP MOD) 63 ml/m2 34-74 LV Systolic Volume (BP MOD) 56 ml 21-61 LV Systolic Volume Index (BP MOD) 28 ml/m2 11-31 LV EF (BP MOD) 55 % 52-72 LV Diastolic Length (4C) 8.4 cm LV Systolic Length (4C) 7.7 cm LV Stroke Volume (4C MOD) 76 ml Atria Name Value Normal LA Dimensions LA Volume (4C A-L) 29 ml LA Volume (BP A-L) 30 ml RA Dimensions RA Systolic Major Bly Length (4C) 5.3 cm 2.1-2.7 RA Area (4C) 13.4 cm2 <=18.0 Report Signatures
== END 2024-11-08 07:50 | disposition home or self-care (01) ==
PROVIDERS: PCP Physician Assistant Medical; Visit Provider Internal Medicine Cardiovascular Disease
DX: R93.1 Abnormal findings on diagnostic imaging of heart and coronary circulation (principal); I51.9 Heart disease, unspecified
CPT/HCPCS: 93306

== ENCOUNTER 2025-02-24 14:00 | Outpatient (RCR) | payer BC, SELFPAY ==
--- NOTE | 2024-12-22 09:24 | PTOPEVAL1 ---
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 States also has been having radiating up the leg States has new arch supports from [employer], but the arches are about the same. States also had steroid shots and they only gave about a day and a half of relief. Will try to play tennis with his kids and will pay for it for days. Has tried the ice rolling and that helps for a time, and a roller ball that will use as well. Reported Pain Level Pain Score 2,0: Self Report Assessment PT Clinical Summary Pt presents with c/o bilat chronic plantar fasciitis R>L that over the last year has worsened . He sees a DPM, has custom orthotic inserts for his high arches, and has received steroid shots in the past that were ineffective. Evaluation shows acceptable soleous length, though gastroc length is less by 50%. He also demonstrates tight hamstrings and significant adhesions darby medial hamstrings, multiple areas of increased tone in the gastroc complex, and possibly his current arch supports do not provide enough height support. Pt will benefit from physical therapy in order to address soft tissue extensibility, flexibility, alignment, and reduce inflammation to meet patient goals for activity. Plan of Care Interventions Electrical Stimulation,Hot Pack/Cold Pack,Manual Therapy,Neuro Re-education,Patient/Caregiver Education,Therapeutic Activities,Therapeutic Exercise,Self-Care/Home Management,Ultrasound, Other Other Interventions Taping PT Services Indicated Yes Treatment Frequency and 2x weekly x 10 visits Duration These treatments will address the objective and functional deficits as defined above. The patient will be advanced safely and appropriately in order for the patient to progress towards his/her prior level of function. Additional exercises will be introduced and as well as a comprehensive home exercise program upon discharge, if needed, ?to ensure carryover of functional gains achieved in the clinic. This treatment plan has been reviewed and agreement upon by the patient.
--- NOTE | 2024-12-22 09:25 | OPREHPOC ---
Outpatient Therapy Plan of Care This is a Multidisciplinary Plan of Care that may contain components documented by all disciplines (PT, OT, and ST.) PT Problem 1 PT Problem #1 Knowledge Deficit PT Goal 1 Goal / Goal Update Pt will be independent in HEP Pt will verbalize understanding of diagnosis and prognosis Target Visit 10 PT Problem 2 PT Problem #2 Pain PT Goal 1 Goal / Goal Update Pt will report lowest pain rating at 0/10 to show improvement in overall discomfort in right foot Target Visit 10 PT Goal 2 Goal / Goal Update Pt will report greatest pain level at 3/10 or less in bilat feet to improve ADLs and activities Target Visit 20 PT Problem 3 PT Problem #3 Impaired Flexibility PT Goal 1 Goal / Goal Update Pt will demonstrate gastroc length of 20 degrees bilat Target Visit 10 PT Goal 2 Goal / Goal Update Pt will show hamstring length of 60 degrees from 90/90 position to offload posterior chain and plantar fascia Target Visit 20
--- NOTE | 2025-01-23 08:08 | PCPTNOTE ---
Pt cancelled today's scheduled physical therapy appointment last night with no reason given.
--- NOTE | 2025-02-24 16:54 | PTOPPROG ---
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 Had a little tenderness Thursday night, but not painful. States tenderness here and there this week. Majority of the time doesn't have to think about it or deal with it. Has not been as good at stretching this week. Has not received his orthotics yet. Has not challenged tennis or heavy physical activity the last 3-4 weeks. [employer] 3-4 times last week and no issues Self-perceived improvement: 85-90% Assessment PT Clinical Summary Pt has attended therapy consistently for chronic plantar fasciitis R>L. Initially RLE pain would go up to a 9/10 and now only goes up to a 3/10 and he reports this is rare. Reports resolution of left plantar fascia pain. Pt has met his goals for pain, HEP and maintenance, and ROM for gastrocs though hasn't met goals for hamstrings though has been consistent in his HEP. He also continues to have increased tone and tenderness in the lateral right gastroc though improved, is still an issue. Pt may benefit from dry needling for reset of resting muscle tone. Pt also reports though he feels 90% improved, and has addressed the appropriate orthotics, he has yet to really test himself with high level activity such as a round of tennis. Independent continuation of HEP, maintenance deep tissue massages, and possible continuation of therapy was discussed. Pt plan of care will be placed on hold for 3 weeks to allow patient time to test himself and contemplate further therapy options with dry needling focus. Plan of Care Interventions Electrical Stimulation,Hot Pack/Cold Pack,Manual Therapy,Neuro Re-education,Patient/Caregiver Education,Therapeutic Activities,Therapeutic Exercise,Self-Care/Home Management,Ultrasound, Other Other Interventions Dry needling PT Services Indicated Yes Treatment Frequency and 2x weekly x 8 visits Duration These treatments will address the objective and functional deficits as defined above. The patient will be advanced safely and appropriately in order for the patient to progress towards his/her prior level of function. Additional exercises will be introduced and as well as a comprehensive home exercise program upon discharge, if needed, ?to ensure carryover of functional gains achieved in the clinic. This treatment plan has been reviewed and agreement upon by the patient.
--- NOTE | 2025-02-24 16:54 | OPREHPOC ---
Outpatient Therapy Plan of Care This is a Multidisciplinary Plan of Care that may contain components documented by all disciplines (PT, OT, and ST.) PT Problem 1 PT Problem #1 Knowledge Deficit PT Goal 1 Goal / Goal Update Pt will be independent in HEP Pt will verbalize understanding of diagnosis and prognosis Target Visit 10 PT Problem 2 PT Problem #2 Pain PT Goal 1 Goal / Goal Update Pt will report lowest pain rating at 0/10 to show improvement in overall discomfort in right foot Target Visit 10 Progress Met PT Goal 2 Goal / Goal Update Pt will report greatest pain level at 3/10 or less in bilat feet to improve ADLs and activities Target Visit 20 Progress Met PT Problem 3 PT Problem #3 Impaired Flexibility PT Goal 1 Goal / Goal Update Pt will demonstrate gastroc length of 20 degrees bilat Target Visit 10 Progress Met PT Goal 2 Goal / Goal Update Pt will show hamstring length of 60 degrees from 90/90 position to offload posterior chain and plantar fascia - progressed 5 degrees on RLE and 10 degrees on LLE Target Visit 20 Progress Partially Met PT Problem 4 PT Problem #4 Impaired Functional Mobility PT Goal 1 Goal / Goal Update Pt will report ability to perform high level activities such as tennis with 3/10 or less pain, that can be managed independently Target Visit 20
== END 2025-03-22 23:59 | disposition home or self-care (01) ==
LOC: ANHHIPT 14:00
PROVIDERS: PCP Physician Assistant Medical; Visit Provider Physician Assistant Medical
DX: M72.2 Plantar fascial fibromatosis (principal)
CPT/HCPCS: 97110; 97140; 97161; 97530; 97750

== ENCOUNTER 2025-02-28 14:42 | Outpatient (CLI) | payer BC, SELFPAY ==
[2025-02-28 15:09] LABS: Hematocrit 50.9 % (42.0-52.0); Hemoglobin 17.7 g/dL (14.0-18.0); Immature Granulocyte Percent A 0.6 % (0-0.5); Lymphocytes Absolute Auto 1.98 K/mm3 (0.9-3.2); Mean Corpuscular HGB Conc 34.8 g/dl (32-36); Mean Corpuscular Hemoglobin 32.4 pg (26-34); Mean Corpuscular Volume 93.1 fl (80-100); Nucleated Red Blood Cells Absolute Auto 0.000 K/mm3 (0.0-0.012); Nucleated Red Blood Cells Perc 0.0 % (0.0-0.2); Platelet Count Result 154 k/mm3 (150-375); Red Blood Count 5.47 M/mm3 (4.6-6.20); White Blood Count 7.0 K/mm3 (4.5-10.0)
[2025-02-28 16:18] LABS: Alanine Aminotransferase 43 U/L (6-50); Albumin Level 4.4 g/dL (3.5-5.1); Alkaline Phosphatase 50 U/L (38-126); Anion Gap 6 mmol/L (4-12); Aspartate Amino Transferase 54 U/L (17-59); Bilirubin,Total 0.7 mg/dL (0.2-1.3); Blood Urea Nitrogen 21 mg/dL (9-20); Calcium 9.0 mg/dL (8.4-10.2); Carbon Dioxide 29 mmol/L (22-30); Chloride 101 mmol/L (98-107); Estimated Glomerular Filt Rate 59; Glucose 92 mg/dL (65-110); Potassium 4.4 mmol/L (3.4-5.0); Sodium 136 mmol/L (137-145); Total Protein 7.3 g/dL (6.3-8.2)
[2025-02-28 16:19] LABS: Iron 103 ug/dL (49-181)
--- OUTSIDE RECORDS SUMMARY | 2025-02-28 16:29 | XMS_ITS | Clinical Summary ---
Author Organization [facility] Address [address] [place] [address] Care Team Providers Care License Examiner Name Role Phone Kenneth Figueredo MD Primary Care Provider [phone] Allergies No known active allergies Medications fluticasone [...] - 19+ 3-dose series) 1996 COVID-19 Vaccine (2024-2 6 season) 2024 07/15/2020, 06/24/2020 Influenza Adult (#1) 2025 Hepatitis A Vaccines Aged Out No long er eligible based on patient's age to complete this topic Meningococcal B Vaccine Aged Out No l [...] to complete this topic Insurance Care Teams License Examiner Relationship Specialty Start Date End Date Kenneth Figueredo MD [address] [place] [address] PCP - General INTERNAL MEDICINE 08/29/20
--- OUTSIDE RECORDS SUMMARY | 2025-02-28 16:29 | XMS_ITS | Clinical Summary ---
Author Organization [facility] Address [address] [place] [address] Care Team Providers Care Petroleum Engineering Teacher Name Role Phone Unavailable Primary Care Provider Unavailabl e Allergies No known active allergies Medications testosterone cypionate 200 mg/mL Kit 01/03/2021 Active BENEFIBER, GUAR GUM, ORAL Take by mouth. Active ibuprofen (MOTRIN) 200 mg tablet Take 200 mg by mouth every 6 hours as needed for Pain, Mild. Active Active Problems No known active problems Family History Medical History Relation Name Comments [...] on file Legal Sex Male 5:36 PM TRAP PULLER Gender Identity Not on file Sexual Orientation Not on file Last Filed Vital Signs Vital Sign Reading Time Taken Comments Blood Pressure 141/97 06/03/2024 9:59 AM TRAP PULLER Pulse 74 06/03/2024 9:56 AM TRAP PULLER Temperature 36.3 C (97.3 F) 06/03/2024 9:56 AM TRAP PULLER Respiratory Rate 16 06/03/2024 9:56 AM TRAP PULLER Oxygen Saturation 97% 06/03/2024 9:56 AM TRAP PULLER Inhaled Oxygen Concentration - - Weight 83.3 kg (183 lb 9.6 oz) 06/03/2024 9:56 A M TRAP PULLER Height 172.7 cm (5' 8) 05/04/2023 1:27 PM TRAP PULLER Body Mass Index 27.92 05/04/2023 1:27 PM TRAP PULLER Plan of Treatment Upcoming Encounters Date Type Department Care Team (Late st Contact Info) Description 03/07/2025 10:00 AM TRAP PULLER Office Visit [facility] Oncology and Hematology - [place] [address] [facility] [address] [place] [address] Sheldon De León MD [address] [facility] [address] [place] [address] Health Maintenance Due Date Last Done Comments Pre-Diabetes and Diabetes Screening 1975 DTAP/TDAP/TD VACCINES (1 - Tdap) 1996 HEPATITIS B VACCINES (1 of 3 - 19+ 3-dose series) 10/04 COLORECTAL SCREENING 2022 Colorectal Cancer Screening 2022 FIT-DNA Q 3 years 2022 FIT/FOBT Q 1 year 2022 Flex Sig/CT Colonography Q 5 years 2022 Preventative Visit- Commercial 04/06/2024 INFLUENZA VACCINE (#1) 2024 Insurance [facility] BLUE ACCESS CHOICE
[2025-02-28 16:32] LABS: Percent Iron Saturation 28 % (20-50)
[2025-02-28 17:10] LABS: Ferritin 80.20 ng/mL (17.9-464)
[2025-02-28 17:17] LABS: Vitamin B12 557.0 pg/mL (239-931)
== END 2025-02-28 14:43 | disposition home or self-care (01) ==
PROVIDERS: PCP Physician Assistant Medical; Visit Provider Internal Medicine Hematology & Oncology
DX: D64.9 Anemia, unspecified (principal); E29.1 Testicular hypofunction
CPT/HCPCS: 36415; 80053; 82607; 82728; 83540; 83550; 85025